=== PATIENT | male | born 1960 | race American Indian/Alaskan Native ===

== ENCOUNTER 2018-04-02 13:22 | Emergency (ER) | payer OTHER ==
[2018-04-02 13:26] VITALS: TEMP 98.1
[2018-04-02] MEDS ORDERED: Sodium Chloride 0.9% 1,000 ML IV STA (13:37)
--- NOTE | 2018-04-02 13:42 | ED PDOC ---
Syncope/Near Syncope/Dizziness Time Seen by Provider: 04/02/18 13:27 Chief Complaint (Nursing): Syncope Chief Complaint (Provider): Syncope History Per: Patient History/Exam Limitations: no limitations Onset/Duration Of Symptoms: Days Current Symptoms Are (Timing): Still Present Additional Complaint(s): 58 y/o male with no significant PMHx brought in by EMS after experiencing a syncopal episode while at work, prior to arrival. Patient states syncopal episode was witness by co-workers and lasted a few seconds. Patient reports of having no recollection of the actual event but does remember being lifted into chair. Otherwise, patient denies fall or injury, headache, dizziness, chest pain or palpitations prior to or after event. PMD: none Past Medical History Reviewed: Historical Data, Nursing Documentation, Vital Signs Vital Signs: Last Vital Signs Temp 98.1 F 04/02/18 13:24 Pulse 108 H 04/02/18 13:24 Resp 19 04/02/18 13:24 BP 177/99 H 04/02/18 13:24 Pulse Ox 100 04/02/18 13:24 - Medical History PMH: No Chronic Diseases - Surgical History Surgical History: No Surg Hx - Family History Family History: States: Unknown Family Hx - Allergies Allergies/Adverse Reactions: Allergies Allergy/AdvReac Type Severity Reaction Status Date / Time No Known Allergies Allergy Verified 04/02/18 13:26 Review of Systems ROS Statement: Except As Marked, All Systems Reviewed And Found Negative Cardiovascular: Negative for: Chest Pain, Palpitations Neurological: Positive for: Other (syncopal episode). Negative for: Headache, Dizziness Physical Exam - Reviewed Nursing Documentation Reviewed: Yes Vital Signs Reviewed: Yes - Physical Exam Appears: Positive for: No Acute Distress Head Exam: Positive for: ATRAUMATIC, NORMOCEPHALIC Skin: Positive for: Normal Color, Warm, Dry Eye Exam: Positive for: Normal appearance, EOMI, PERRL Neck: Positive for: Normal, Painless ROM, Supple Cardiovascular/Chest: Positive for: Regular Rate, Rhythm. Negative for: Murmur Respiratory: Positive for: Normal Breath Sounds. Negative for: Respiratory Distress Gastrointestinal/Abdominal: Positive for: Normal Exam, Soft. Negative for: Tenderness Back: Positive for: Normal Inspection. Negative for: L CVA Tenderness, R CVA Tenderness, Vertebral Tenderness Extremity: Positive for: Normal ROM. Negative for: Pedal Edema, Deformity Neurologic/Psych: Positive for: Alert, log check scaler II-XII (intact), Oriented, Cerebellar Tests (normal). Negative for: Motor/Sensory Deficits, Aphasia - Laboratory Results Result Diagrams: 04/02/18 13:49 04/02/18 13:49 - ECG O2 Sat by Pulse Oximetry: 100 (RA) Pulse Ox Interpretation: Normal Medical Decision Making Medical Decision Making: Time: 1337 Impression: Syncopal episode Differentials include but not limited to neurological vs. cardiac vs. metabolic vs. anemia as ideology Plan: -- Will obtain CT, EKG, blood work -- CT Head w/o Contrast -- EKG -- CMP -- ED Urine Dipstick -- CBC with Differentials -- Sodium Chloride 0.9% 1000 IV 100 mls/hr -- Influenza A B Pt advised 24 hr obs for syncope with abnormal EKG and abnormal renal function. Pt prefers to f/u as outpt. Aware of risks including NE, arryhthmia and recurrent syncope and Scribe Attestation: Documented by Faith Rodriguez, acting as a scribe for Dilip Caballero MD. Provider Scribe Attestation: All medical record entries made by the Scribe were at my direction and personally dictated by me. I have reviewed the chart and agree that the record accurately reflects my personal performance of the history, physical exam, medical decision making, and the department course for this patient. I have also personally directed, reviewed, and agree with the discharge instructions and disposition. Disposition - Clinical Impression Clinical Impression: Syncope - Patient ED Disposition Is Patient to be Admitted: No Counseled Patient/Family Regarding: Studies Performed, Diagnosis, Need For Followup - Disposition Referrals: [facility] [Outside] Disposition: Routine/Home Disposition Time: 14:25 Condition: FAIR Instructions: Syncope (Fainting) Forms: [facility] (Kiswahili)
[2018-04-02 13:58] LABS: BASO # 0.1 K/uL (0.0-0.2); BASO % 0.4 % (0.0-2.0); HEMOGLOBIN 13.8 g/dL (12.0-18.0); LYMPH # 0.9 K/uL (1.0-4.3); LYMPH % 6.9 % (20.0-40.0); MEAN CELL VOLUME 81.9 fl (80.0-94.0); MEAN CORPUSCULAR HEMOGLOBIN 27.7 pg (27.0-31.0); MEAN CORPUSCULAR HGB CONC 33.8 g/dL (33.0-37.0); MEAN PLATELET VOLUME 8.7 fl (7.2-11.7); MONO # 1.7 K/uL (0.0-0.8); MONO % 12.6 % (0.0-10.0); NEUT # 10.5 K/uL (1.8-7.0); NEUT % 80.1 % (50.0-75.0); PLATELET COUNT 192 K/uL (130-400); RBC 4.99 Mil/uL (4.40-5.90); RED CELL DISTRIBUTION WIDTH 14.9 % (11.5-14.5); WHITE BLOOD COUNT 13.1 K/uL (4.8-10.8)
[2018-04-02 14:09] LABS: CALCIUM 9.8 mg/dL (8.4-10.2)
--- NOTE | 2018-04-02 14:29 | CT ---
Date of service: 04/02/2018 PROCEDURE: CT HEAD WITHOUT CONTRAST. HISTORY: r/o bleed COMPARISON: None available. TECHNIQUE: Axial computed tomography images were obtained through the head/brain without intravenous contrast. Radiation dose: Total exam DLP = 844.05 mGy-cm. This CT exam was performed using one or more of the following dose reduction techniques: Automated exposure control, adjustment of the mA and/or kV according to patient size, and/or use of iterative reconstruction technique. FINDINGS: HEMORRHAGE: No intracranial hemorrhage. BRAIN: No mass effect or edema. No atrophy or chronic microvascular ischemic changes. VENTRICLES: Unremarkable. No hydrocephalus. CALVARIUM: Unremarkable. PARANASAL SINUSES: Unremarkable as visualized. No significant inflammatory changes. MASTOID AIR CELLS: Unremarkable as visualized. No inflammatory changes. OTHER FINDINGS: None. IMPRESSION: Normal CT of the Head.
[2018-04-02 14:37] VITALS: BP 148/77; PULSE 85; RESP 18; O2SAT 99
[2018-04-02 14:39] LABS: BANDS 2 % (0-2); LYMPHOCYTE 4 % (20-50); MONOCYTE 10 % (0-10); NEUTROPHIL 84 % (42-75); PLATELET ESTIMATE NORMAL (NORMAL); TOTAL CELLS COUNTED 100
[2018-04-02 14:40] LABS: ANISOCYTOSIS SLIGHT; TOXIC GRANULATION PRESENT
--- NOTE | 2018-04-03 16:44 | CARD ---
APPROVED REPORT Date of service: 04/02/2018 EKG Measurement Heart [id number] <Conclusion> Normal sinus rhythm with sinus arrhythmia Possible Left atrial enlargement Left ventricular hypertrophy ST & T wave abnormality, consider inferolateral ischemia Abnormal ECG
== END 2018-04-02 14:41 | disposition home or self-care (01) ==
LOC: H.ER 13:22
DX: R55 Syncope and collapse (principal)
CPT/HCPCS: 70450; 80053; 84484; 85025; 87804; 93005; 99284; J7030